=== PATIENT | female | born 1955 | race Caucasian/White ===

== ENCOUNTER → 2019-11-21 | Outpatient (CLI) | payer BC ==
[~2019-11-21] MED LIST: ISOVUE-370 76% 100ML VIAL As Ordered ONE
--- NOTE | 2019-12-07 17:44 | REP ---
Clinical: Chest pain. History of prior pulmonary embolus. Technique: Axial contrast enhanced images from the thoracic inlet to the upper abdomen with coronal and sagittal re-formations using 75 ml Isovue 370 intravenous contrast material. Findings: Moderate to early advanced diffuse emphysematous disease is appreciated with minimal scattered scarring. No focal consolidation, obvious significant nodule or mass lesion. No effusion. No pneumothorax. Tracheobronchial tree is patent. Mediastinum demonstrates normal thoracic aorta, pulmonary vasculature and heart/pericardium. Subtle soft tissue at the origin of the left upper lobe pulmonary artery appears to be relatively extraluminal and may represent small amounts of lymphoid tissue. No obvious acute pulmonary embolus identified. Surrounding musculoskeletal structures demonstrate age-related degenerative changes without focal abnormality. Upper abdomen demonstrates normal bilateral adrenal glands. Impression: 1. Moderate to early advanced emphysematous disease with minimal scattered scarring. 2. No obvious acute mediastinal or pleuroparenchymal process appreciated. 3. No definite evidence for acute or chronic pulmonary embolus. 4. At the time of evaluation and dictation, prior examination(s) none available for comparison. Electronically Signed by Xiang Malave MD 12/07/2019 05:36 P
== END ==
LOC: M RAD 10:02
PROVIDERS: ATTEND Internal Medicine Pulmonary Disease
DX: Z86.711 Personal history of pulmonary embolism (principal); J43.9 Emphysema, unspecified
CPT/HCPCS: 71260; Q9967